=== PATIENT | female | born 1985 | race Caucasian/White ===

== ENCOUNTER 2017-01-17 07:47 | Emergency (ER) | payer BC ==
--- NOTE | ~2017-01-17 | EKG ---
PATIENT: RADHA FRANKS UNIT #: [id number] Ventricular Rate: 72 BPM Atrial Rate: 72 BPM P-R Interval: 156 ms QRS Duration: 90 ms Q-T Interval: 376 ms QTC Calculation(Bezet): 411 ms P [place]: 6 degrees Calculated R [place]: 8 degrees Calculated T [place]: 44 degrees Diagnosis Line: Normal sinus rhythm Diagnosis Line: Normal ECG Diagnosis Line: Diagnosis Line: Confirmed by NATALEE GERARDO MD ([id number]) on 01/17/2017 Diagnosis Line: 6:25:03 PM INTERPRETING MD: HUMAIRA GOLDSTEIN
[~2017-01-17 07:47] MED LIST: ACID CONTROL20 MG PO; ALBUTEROL17 GM INH; ALDOMET250 MG PO; AMOXICILLIN875 MG PO; BACTRIM DS TABL1 TA1 PO; BACTRIM DS TABL1 TA2 PO; BENTYL20 M1 PO; BENZONATATE PO; BP PILL; CIPRO PO; CLARITIN D PO; DICLOFENAC PO; DIFLUCAN PO; FAMOTIDINE PO; FISH OIL500 MG PO; FLAGYL250 M1 PO; FLEXERIL10 MG PO; FLOMAX0.4 M1 PO; GLUCOPHAGE500 M1 PO; GLUCOPHAGE500 MG PO; HCTZ PO; K-DUR20 ME2 PO; LISINOPRIL20 MG PO; LOMOTIL TABLET1 TAB PO; MACROBID100 MG PO; METHYLDOPA PO; MEVACOR10 MG PO; MOBIC PO; NAPROSYN-EC500 M1 PO; NAPROXEN PO; NORCO1 TAB 10/3 PO; NOVOLIN 70100 UNITS/ SUBQ; ONDANSETRON ODT4 MG DOB; PERCOCET 5-3251 TAB PO; PHENERGAN25 MG PO; PREDNISONE PO; PREVACID PO; PRILOSEC; PRILOSEC PO; PRILOSEC20 M1 PO; PRINIVIL20 M1 PO; PROTONIX PO; PYRIDIUM PO; ROBITUSSIN100 MG/51 PO; TAGAMET; TAGAMET PO; TAMIFLU75 M1 PO; TESSALON PERLE100 M1 PO; VITAMIN D250000 UNIT PO; VOLTAREN50 MG PO; VOLTAREN75 MG PO; ZANTAC; ZITHROMAX PO; ZOFRAN; ZOFRAN ODT4 MG PO; ZOFRAN ODT4 MG/UDTAB PO; ZOFRAN PO; ZOVIRAX15 GM TP; ZOVIRAX800 MG PO; [UNRECOGNIZED DRUG - OTHER] PO
[2017-01-17 07:54] LABS: BASOPHIL# 0.1 X10e3 (0-0.3); BASOPHIL% 0.9 % (0-2.5); EOSINOPHIL# 0.2 X10e3 (0-0.7); EOSINOPHIL% 2.1 % (0.0-7.0); HEMATOCRIT 31.1 % (35.0-45.0); HEMOGLOBIN 10.1 gm/dL (12.0-16.0); LYMPHOCYTE# 2.8 X10e3 (1.0-3.5); MEAN CELL VOLUME 75.6 FL (83-96); MEAN CORPUSCULAR HEMOGLOBIN 24.6 PG (28-34); MEAN CORPUSCULAR HGB CONC 32.6 g/dL (30-36); MEAN PLATELET VOLUME 9.1 FL (6.5-11.5); MONOCYTE# 0.6 X10e3 (0-1.0); NEUTROPHIL# 7.8 X10e3 (1.5-7.1); PLATELET COUNT 240 X10e3 (140-420); RED BLOOD COUNT 4.11 X10e (3.90-5.30); RED CELL DISTRIBUTION WIDTH 16.1 % (11.0-15.5); WHITE BLOOD COUNT 11.5 X10e3 (4.0-10.5)
[2017-01-17 07:55] LABS: DIFF IND NO
[2017-01-17 08:15] LABS: POC - CKMB <1.0 ng/mL (0.0-7.9); POC - TROPONIN <0.05 ng/mL (<=0.05)
[2017-01-17 08:31] LABS: URINE SOURCE CLEAN CATCH
[2017-01-17 08:36] LABS: URINE APPEARANCE CLEAR; URINE BILIRUBIN NEG (NEG); URINE BLOOD NEG (NEG); URINE COLOR YELLOW; URINE GLUCOSE NEG (NEG); URINE KETONE NEG (NEG); URINE LEUKOCYTE ESTERASE NEG (NEG); URINE NITRATE NEG (NEG); URINE PROTEIN NEG (NEG); URINE SPECIFIC GRAVITY 1.024 (1.003-1.035); URINE UROBILINOGEN 0.2 MG/DL (NEG)
[2017-01-17 08:36] LABS: ALBUMIN SERUM 3.5 g/dL (3.5-5.0); ALKALINE PHOSPHATASE 44 U/L (32-92); ALT (SGPT) 33 U/L (10-40); AMYLASE 18 U/L (0-46); AST (SGOT) 15 U/L (10-42); BILIRUBIN,TOTAL 0.2 mg/dL (0.2-2.0); BLOOD UREA NITROGEN 16 mg/dL (9-23); CALCIUM SERUM 8.9 mg/dL (8.4-10.2); CARBON DIOXIDE 23 mmol/L (22-31); CHLORIDE 105 mmol/L (100-111); CREATININE SERUM 0.8 mg/dL (0.6-1.4); GLOM FILT RATE Estimated ABOVE60 mL/min (>60); GLUCOSE FASTING 174 mg/dL (70-110); LIPASE 39 U/L (22-51); PROTEIN TOTAL SERUM 6.9 g/dL (6.0-8.3); SODIUM 137 mmol/L (135-145)
[2017-01-17 08:38] LABS: BILIRUBIN, DIRECT <0.1 mg/dL (0.0-0.2); BILIRUBIN,INDIRECT 0.1 mg/dL (0.0-0.9)
[2017-01-17 08:41] LABS: CULTURE INDICATED? NO
== END 2017-01-17 09:09 | disposition home or self-care (01) ==
LOC: CED 07:47
PROVIDERS: Emergency Medicine
DX: R10.13 Epigastric pain (principal); K21.9 Gastro-esophageal reflux disease without esophagitis; I10 Essential (primary) hypertension; Z88.2 Allergy status to sulfonamides; Z88.8 Allergy status to other drugs, medicaments and biological substances
CPT/HCPCS: 36415; 80048; 80076; 81003; 82150; 82553; 83690; 84484; 84703; 85025; 93005; 99284